=== PATIENT | female | born 1980 | race African-American/Black ===

== ENCOUNTER 2021-11-14 19:15 | Emergency (ER) | payer SELFPAY ==
[~2021-11-14] VITALS: Ht 165.1 cm; Wt 64.0 kg
--- NOTE | 2021-11-14 19:44 | PHYS DOC ---
Adult General Chief Complaint Chief Complaint: ANXIETY/PANIC ATTACK HPI HPI Patient is a 41-year-old female with a past medical history of anxiety and hypertension who presents with anxiety/panic attack which started just before coming into the emergency department. States she feels like her heart racing and she is scared and think she cannot breathe. Denies any recent travel, traumas, illnesses, fevers, chest pain, shortness of breath, abdominal pain, nausea, vomiting, diarrhea, rash. Denies any known allergies. States has been eating and drinking normally. States he is making urine and stool normally for her. Review of Systems Review of Systems Review of systems otherwise unremarkable except noted in HPI Allergies Allergies Allergies Coded Allergies Type Severity Reaction Last Updated Verified No Known Drug Allergies 11/14/21 No Physical Exam Physical Exam Constitutional: Well developed, well nourished, no acute distress, non-toxic appearance. [] HENT: Normocephalic, atraumatic, oropharynx moist, Eyes: conjunctiva normal, no discharge. [] Neck: Normal range of motion, no tenderness, supple, no stridor. [] Cardiovascular: Sinus tachycardia Lungs & Thorax: Bilateral breath sounds clear to auscultation [] Abdomen: soft, no tenderness, no masses, no pulsatile masses. [] Skin: Warm, dry, no erythema, no rash. [] Back: No tenderness, no CVA tenderness. [] Extremities: No tenderness, no cyanosis, no clubbing, ROM intact, no edema. [] Neurologic: Alert and oriented X 3, normal motor function, normal sensory function, no focal deficits noted. [] Psychologic: Affect normal, judgement normal, anxious EKG EKG [] Radiology/Procedures Radiology/Procedures [] Heart Score C/O Chest Pain: No Risk Factors: Risk Factors: DM, Current or recent (<one month) smoker, HTN, HLP, family history of CAD, obesity. Risk Scores: Risk Factors: DM, Current or recent (<one month) smoker, HTN, HLP, family history of CAD, obesity. Course & Med Decision Making Course & Med Decision Making Patient is a 41-year-old female presents with anxiety attack and hypertension ST complaint Vital signs notable for tachycardia and hypertension. Physical exam noted a gale. EKG with a rate of 103, QRS of 82, QTc 466, no STEMI. Troponin normal. Chest x-ray normal. After some Versed, patient symptoms abated and vital signs improved. Discussed all findings with patient. Discussed anxiety and panic attacks. Patient stated she was ready go home Advised to follow-up soon as possible with a primary care physician update on ED visit and come back to the ED with new or concerning symptoms. Patient grateful, verbalized understanding and agreed with plan of discharge [] Dragon Disclaimer Dragon Disclaimer This electronic medical record was generated, in whole or in part, using a voice recognition dictation system. Departure Departure: Impression: Primary Impression: Panic attack Additional Impression: Hypertension Disposition: HOME / SELF CARE / HOMELESS Condition: STABLE Referrals: PCPMARLYN (PCP) BRYANNA HOLBROOK Patient Instructions: Anxiety and Panic Attacks, Hypertension Additional Instructions: Thank you for coming into the emergency department tonight and allowing us to take care of you. Please read the attached information carefully go over things we discussed. Please follow-up with your primary care physician as soon as you can update on your ED visit and set up a follow-up as soon as you can. Please come back with new or concerning symptoms as we discussed. Problem Qualifiers ALEXANDER GOLDSMITH MD Nov 14, 2021 19:44
[2021-11-14] MEDS ORDERED: MIDAZOLAM HCL PF 5 MG/5 ML VIAL. IV ONE (20:00)
[2021-11-14 20:06] LABS: BASO % 1 % (0-3); EOS # 0.1 x10^3/uL (0.0-0.7); EOS % 2 % (0-3); HEMATOCRIT 38.3 % (36.0-47.0); HEMOGLOBIN 12.7 g/dL (12.0-15.5); LYMPH # 1.7 x10^3/uL (1.0-4.8); LYMPH % 29 % (24-48); MEAN CORPUSCULAR HEMOGLOBIN 30 pg (25-35); MEAN CORPUSCULAR HGB CONC 33 g/dL (31-37); MEAN CORPUSCULAR VOLUME 90 fL (79-100); MONO # 0.3 x10^3/uL (0.0-1.1); MONO % 6 % (0-9); NEUT # 3.5 x10^3uL (1.8-7.7); NEUT % 62 % (31-73); PLATELET COUNT 164 x10^3/uL (140-400); RED BLOOD COUNT 4.26 x10^6/uL (3.50-5.40); RED CELL DISTRIBUTION WIDTH 13.4 % (11.5-14.5); WHITE BLOOD COUNT 5.6 x10^3/uL (4.0-11.0)
[2021-11-14 20:07] VITALS: BP 222/126
[2021-11-14 20:11] LABS: CALCIUM 9.1 mg/dL (8.5-10.1); CREATININE 0.9 mg/dL (0.6-1.0); GFR 83.9; MAGNESIUM 1.7 mg/dL (1.8-2.4); POTASSIUM 3.8 mmol/L (3.5-5.1)
--- NOTE | 2021-11-14 20:26 | RAD ---
XR CHEST 1V History: Shortness of breath Comparison: April 12, 2021 Findings: No consolidation or pleural effusion. Normal heart size. No pneumothorax. Impression: 1. No acute cardiopulmonary process. Electronically signed by: Braxton Flanagan DO (11/14/2021 8:24 PM) [facility]
--- NOTE | 2021-11-15 01:37 | EKG ---
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
== END 2021-11-14 21:45 | disposition home or self-care (01) ==
LOC: ER 19:15
DX: F41.0 Panic disorder [episodic paroxysmal anxiety] (principal); I10 Essential (primary) hypertension
CPT/HCPCS: 36415; 71045; 80048; 83735; 84484; 85025; 93005; 96374; 99285; J2250